=== PATIENT | female | born 1990 | race Two or more races ===

== ENCOUNTER 2017-05-06 12:16 | Emergency (ER) | payer SELFPAY ==
[~2017-05-06] VITALS: Ht 154.9 cm; Wt 72.6 kg
[2017-05-06 12:24] VITALS: BP 166/91
[2017-05-06] MEDS ORDERED: traMADol 50 MG TABLET PO ONE (12:30)
[2017-05-06] MEDS ORDERED: TRAM-48 PO (12:34)
--- NOTE | 2017-05-06 12:35 | PHYS DOC ---
Past Medical History Past Medical History: No Pertinent History Past Surgical History: No Surgical History Alcohol Use: None Drug Use: None Adult General Chief Complaint Chief Complaint: DENTAL PROBLEM [facility] HPI Patient is a 26 year old female presents to the emergency department stating that she is having frontal dental pain and discomfort. Patient does appear to have broken off teeth noted in the left front #9 and #10 tooth. Patient's #8 tooth appears to be rodded. Patient states that she had went to [facility] and they had placed her on penicillin, ibuprofen and Tylenol. They recommended that she follow-up with an oral surgeon. Patient states that she had followed up with them approximately a week ago. Patient states she does have an appointment next week with the oral surgeon. Patient presents here for increased pain and discomfort. She does have dental wax over the area at this time but it does not appear to be helping with her pain and discomfort. Patient states she did not drive herself here to the emergency department. She has been taken Tylenol every 6 hours, ibuprofen every 6 hours alternating. Review of Systems Review of Systems Constitutional: Denies fever or chills [] Eyes: Denies change in visual acuity, redness, or eye pain [] HENT: Denies nasal congestion or sore throat. Complaint of dental pain Respiratory: Denies cough or shortness of breath [] Cardiovascular: No additional information not addressed in HPI [] GI: Denies abdominal pain, nausea, vomiting, bloody stools or diarrhea [] : Denies dysuria or hematuria [] Musculoskeletal: Denies back pain or joint pain [] Integument: Denies rash or skin lesions [] Neurologic: Denies headache, focal weakness or sensory changes [] Endocrine: Denies polyuria or polydipsia [] Allergies Allergies Allergies Coded Allergies Type Severity Reaction Last Updated Verified No Known Drug Allergies 05/06/17 No Physical Exam Physical Exam Constitutional: Well developed, well nourished, no acute distress, non-toxic appearance. [] HENT: Normocephalic, atraumatic, bilateral external ears normal, oropharynx moist, no oral exudates, nose normal. Patient with #9 and 10 tooth that appears to be broken off. #8 tooth appears to be rotten Gumline appears to be very red and edematous. Eyes: PERRLA, EOMI, conjunctiva normal, no discharge. [] Neck: Normal range of motion, no tenderness, supple, no stridor. [] Cardiovascular:Heart rate regular rhythm, no murmur [] Lungs & Thorax: Bilateral breath sounds clear to auscultation [] Skin: Warm, dry, no erythema, no rash. [] Back: No tenderness Extremities: No tenderness, no cyanosis, no clubbing, ROM intact, no edema. [] Neurologic: Alert and oriented X 3, normal motor function, normal sensory function, no focal deficits noted. [] Psychologic: Affect normal, judgement normal, mood normal. [] Current Patient Data Vital Signs Vital Signs Date Time Temp Pulse Resp B/P (MAP) Pulse Ox O2 Delivery O2 Flow Rate FiO2 05/06/17 12:24 98.4 87 20 99 Room Air 98.4 EKG EKG [] Radiology/Procedures Radiology/Procedures [] Course & Med Decision Making Course & Med Decision Making Pertinent Labs and Imaging studies reviewed. (See chart for details) Patient will be provided with a tramadol here in the emergency department. She' ll be provided with a tramadol prescription which she can take at home. Recommended that she keep her appointment with her oral surgeon next week. Recommended that she can continue taking the Tylenol and ibuprofen continue with the penicillin. Patient will be discharged home in stable condition signs and symptoms to return back to emergency department as been provided. Patient agrees with discharge instructions, treatment regimens and follow-up recommendations. All questions and concerns been answered at patient's bedside. She also was instructed to tramadol will cause drowsiness do not take any be alert and oriented. [] Dragon Disclaimer Dragon Disclaimer This electronic medical record was generated, in whole or in part, using a voice recognition dictation system. Departure Departure Impression: Primary Impression: Fractured tooth Disposition: HOME, SELF-CARE Condition: STABLE Referrals: NO PCP (PCP) Patient Instructions: Tooth Fracture Additional Instructions: Activity as tolerated. Continue with ibuprofen every 6 hours, Tylenol every 6 hours. Continue with the penicillin. Tramadol will cause drowsiness do not take any be alert and oriented. Follow-up with your oral surgeon with next week and she'll have an appointment. Return back to emergency prior signs symptoms of become worse. Scripts Tramadol Hcl (ULTRAM) 50 Mg Tablet 1 TAB PO Q6HRS, #15 TAB Prov: NICHOL WING [employer]GER 05/06/17 Problem Qualifiers Primary Impression: Fractured tooth Encounter type: initial encounter Fracture type: closed Qualified Codes: S02.5XXA - Fracture of tooth (traumatic), initial encounter for closed fracture NICHOL WING APRN May 06, 2017 12:35
== END 2017-05-06 12:35 | disposition home or self-care (01) ==
LOC: ER 12:16
DX: S02.5XXA Fracture of tooth (traumatic), initial encounter for closed fracture (principal); X58.XXXA Exposure to other specified factors, initial encounter; Y93.89 Activity, other specified; Y99.8 Other external cause status; Y92.89 Other specified places as the place of occurrence of the external cause
CPT/HCPCS: 99283